=== PATIENT | male | born 1965 | race Caucasian/White ===

== ENCOUNTER 2017-11-14 06:21 | Inpatient (IN) | payer OTHER ==
[2017-11-14] MEDS ORDERED: BUPIVACAINE 0.25%/EPI (MDV) 50 ML VIAL INJ (07:00)
[2017-11-14] MEDS ORDERED: MIDAZOLAM 1 MG/ML 2 ML INJ (08:13)
[2017-11-14] MEDS ORDERED: PHENYLephrine (100 MCG/ML) 5ML SYG (08:21)
[2017-11-14] MEDS: HEPARIN 1000 UNITS/ML 10 ML INJ (08:58)
[2017-11-14] MEDS: GELATIN SIZE 100 SPONGE (09:00)
[2017-11-14] MEDS: THROMBIN 5000 UNIT VIAL ×2 (09:00→09:40)
[2017-11-14] MEDS: CEFAZOLIN 1 GM INJ (09:40)
[2017-11-14] MEDS: HEMOSTATIC MATRIX SYG ZFS (09:41)
[2017-11-14] MEDS ORDERED: LIDOCAINE 2% (SDV) 5 ML INJ (13:07)
[2017-11-14] MEDS ORDERED: ROCURONIUM 50 MG INJ (13:07)
[2017-11-14] MEDS ORDERED: PROPOFOL 20 ML (13:07)
[2017-11-14] MEDS ORDERED: ONDANSETRON 4 MG INJ (13:07)
[2017-11-14] MEDS ORDERED: CEFAZOLIN 1 GM INJ (13:07)
[2017-11-14] MEDS ORDERED: METOCLOPRAMIDE 10 MG INJ (13:07)
[2017-11-14] MEDS ORDERED: NALOXONE (0.4 MG/ML) INJ IV (13:30)
[2017-11-14] MEDS ORDERED: NACL 0.9% 3 ML SYG IV (13:30)
[2017-11-14] MEDS ORDERED: HYDROCODONE/APAP (5/325) TAB PO ×2 (13:30)
[2017-11-14] MEDS ORDERED: ACETAMINOPHEN 325 MG TAB PO (13:30)
[2017-11-14] MEDS ORDERED: ONDANSETRON 4 MG INJ IV (14:00)
[2017-11-14] MEDS ORDERED: LABETALOL HCL 20MG INJ IV (14:00)
[2017-11-14] MEDS ORDERED: METOCLOPRAMIDE 10 MG INJ IV (14:00)
[2017-11-14] MEDS ORDERED: DIPHENHYDRAMINE 50 MG INJ IV (14:00)
[2017-11-14] MEDS ORDERED: HYDROmorphONE (0.2 MG/ML) 10ML SYG IV ×2 (14:00)
[2017-11-14] MEDS ORDERED: FENTAnyl 50 MCG/ML VIAL IV (14:00)
[2017-11-14] MEDS: HYDROmorphONE 0.2 MG/ML PCA IV (14:06)
[2017-11-14] MEDS: MEPERIDINE 25 MG INJ IV (14:14)
[2017-11-14] MEDS: ONDANSETRON 4 MG INJ IV (16:08)
[2017-11-14] MEDS: DEXTROSE 5%-0.45% NACL 1,000 ML IV ×2 (18:30→23:24)
[2017-11-14] MEDS: CEFAZOLIN 1 GM/50 ML (PMX) 50 ML IVPB (18:30)
[2017-11-14] MEDS: LISINOPRIL 20 MG TAB PO (19:00)
[2017-11-14] MEDS: DOCUSATE SODIUM 100 MG CAP PO (20:35)
[2017-11-15] MEDS: CEFAZOLIN 1 GM/50 ML (PMX) 50 ML IVPB ×3 (00:09→11:53)
[2017-11-15] MEDS: DEXTROSE 5%-0.45% NACL 1,000 ML IV ×3 (04:54→21:17)
[2017-11-15 05:02] LABS: HEMATOCRIT 38.8 % (42.0-52.0); HEMOGLOBIN 12.8 g/dl (14.0-18.0)
[2017-11-15 05:40] LABS: ANION GAP 15 (8-16); BLOOD UREA NITROGEN 12 mg/dl (7-20); CALCIUM 8.6 mg/dl (8.4-10.2); CARBON DIOXIDE 25 mmol/L (21-31); CHLORIDE 104 mmol/L (97-110); CREATININE 1.15 mg/dl (0.61-1.24); GLUCOSE 139 mg/dl (70-220); POTASSIUM 3.7 mmol/L (3.5-5.1); SODIUM 140 mmol/L (135-144)
[2017-11-15] MEDS: LISINOPRIL 20 MG TAB PO (09:35)
[2017-11-15] MEDS: OXYCODONE/ACETAMINOPHEN (10/325) TAB PO ×2 (10:47→15:38)
[2017-11-15] MEDS: MAGNESIUM HYDROXIDE 30ML CUP PO (11:53)
[2017-11-15] MEDS: ONDANSETRON 4 MG INJ IV (11:56)
[2017-11-15] MEDS: DOCUSATE SODIUM 100 MG CAP PO ×2 (11:56→21:17)
[2017-11-15] MEDS: HYDROmorphONE 0.5 MG/0.5 ML SYG IV ×2 (17:06→21:16)
[2017-11-15] MEDS ORDERED: OXYCODONE/ACETAMINOPHEN (5/325) TAB PO (20:00)
[2017-11-16] MEDS: HYDROmorphONE 0.5 MG/0.5 ML SYG IV (01:57)
[2017-11-16] MEDS: DEXTROSE 5%-0.45% NACL 1,000 ML IV ×2 (05:35→15:24)
[2017-11-16] MEDS: OXYCODONE/ACETAMINOPHEN (5/325) TAB PO ×4 (05:39→20:50)
[2017-11-16] MEDS: ONDANSETRON 4 MG INJ IV (06:00)
[2017-11-16] MEDS: LISINOPRIL 20 MG TAB PO (08:49)
[2017-11-16] MEDS: DOCUSATE SODIUM 100 MG CAP PO ×2 (08:49→20:43)
[2017-11-16] MEDS: MAGNESIUM HYDROXIDE 30ML CUP PO ×2 (08:51→20:43)
[2017-11-16] MEDS: PROCHLORPERAZINE 10 MG TAB PO (08:51)
[2017-11-17] MEDS: DEXTROSE 5%-0.45% NACL 1,000 ML IV (01:21)
[2017-11-17] MEDS: OXYCODONE/ACETAMINOPHEN (5/325) TAB PO ×2 (01:48→06:48)
[2017-11-17 10:17] LABS: ADD MAN DIFF? NO
[2017-11-17 10:22] LABS: WHITE BLOOD COUNT 14.4 10^3/ul (4.8-10.8)
[2017-11-17 10:22] LABS: BASOPHIL # 0.1 10^3/ul (0.0-0.1); BASOPHILS % 0.4 % (0.0-2.0); EOSINOPHILS # 0.2 10^3/ul (0.0-0.5); EOSINOPHILS % 1.3 % (0.0-7.0); HEMATOCRIT 40.6 % (42.0-52.0); HEMOGLOBIN 13.2 g/dl (14.0-18.0); LYMPHOCYTES # 1.3 10^3/ul (0.8-2.9); LYMPHOCYTES % 8.7 % (15.0-51.0); MEAN CORPUSCULAR HEMOGLOBIN 26.9 pg (29.0-33.0); MEAN CORPUSCULAR HGB CONC 32.5 g/dl (32.0-37.0); MEAN CORPUSCULAR VOLUME 82.9 fl (82.0-101.0); MEAN PLATELET VOLUME 11.3 fl (7.4-10.4); MONOCYTE # 1.1 10^3/ul (0.3-0.9); MONOCYTES % 7.7 % (0.0-11.0); NEUTROPHIL # 11.7 10^3/ul (1.6-7.5); NEUTROPHILS % 81.1 % (39.0-77.0); PLATELET COUNT 309 10^3/UL (140-415); RED CELL DISTRIBUTION WIDTH 12.6 % (11.5-14.5)
[2017-11-17] MEDS: LISINOPRIL 20 MG TAB PO (10:22)
[2017-11-17] MEDS: DOCUSATE SODIUM 100 MG CAP PO (10:22)
[2017-11-17 10:41] LABS: ANION GAP 12 (8-16); BLOOD UREA NITROGEN 11 mg/dl (7-20); CALCIUM 9.2 mg/dl (8.4-10.2); CARBON DIOXIDE 30 mmol/L (21-31); CHLORIDE 100 mmol/L (97-110); GLUCOSE 125 mg/dl (70-220); POTASSIUM 3.9 mmol/L (3.5-5.1); SODIUM 138 mmol/L (135-144)
[2017-11-17 11:25] LABS: ADD UMIC YES; UR ASCORBIC ACID NEGATIVE (NEGATIVE); UR BILIRUBIN (Dip) NEGATIVE (NEGATIVE); UR BLOOD (Dip) 1+ mg/dL (NEGATIVE); UR CLARITY CLEAR (CLEAR); UR COLOR YELLOW (YELLOW); UR GLUCOSE (Dip) NEGATIVE (NEGATIVE); UR KETONES (Dip) TRACE mg/dL (NEGATIVE); UR LEUKOCYTE ESTERASE (Dip) NEGATIVE Leu/ul (NEGATIVE); UR NITRITE (Dip) NEGATIVE (NEGATIVE); UR RBC 0 /HPF (0-5); UR TOTAL PROTEIN (Dip) NEGATIVE (NEGATIVE); UR UROBILINOGEN (Dip) NEGATIVE (NEGATIVE); UR WBC 0 /HPF (0-5)
== END 2017-11-17 11:15 | disposition home or self-care (01) | DRG 455 ==
LOC: REC 06:21 → MS1 15:40
PROC: 0SG30A0 Fusion of Lumbosacral Joint with Interbody Fusion Device, Anterior Approach, Anterior Column, Open Approach (ICD-10-PCS; principal; 2017-11-14 08:00)
PROC: 0SG30K1 Fusion of Lumbosacral Joint with Nonautologous Tissue Substitute, Posterior Approach, Posterior Column, Open Approach (ICD-10-PCS; 2017-11-14 08:00)
PROC: 0SB40ZZ Excision of Lumbosacral Disc, Open Approach (ICD-10-PCS; 2017-11-14 08:00)
PROC: 4A11X4G Monitoring of Peripheral Nervous Electrical Activity, Intraoperative, External Approach (ICD-10-PCS; 2017-11-14 08:00)
DX: M43.17 Spondylolisthesis, lumbosacral region (principal); M48.061 Spinal stenosis, lumbar region without neurogenic claudication; M51.17 Intervertebral disc disorders with radiculopathy, lumbosacral region; I10 Essential (primary) hypertension; E78.5 Hyperlipidemia, unspecified
CPT/HCPCS: 72110; 80048; 81001; 85014; 85018; 85025; 86850; 86900; 86901; 86920; 87086; 97110; 97116; 97163; 97530